=== PATIENT | female | born 1990 | race Caucasian/White ===

== ENCOUNTER 2016-07-23 03:50 | Emergency (ER) | payer SELFPAY ==
[2016-07-23 03:57] VITALS: BP 142/86
--- NOTE | 2016-10-12 23:56 | ED ---
Progress - Progress Note Progress Note: pt here for legal b;ood draw. no complaints blood drawn Dx Legal blood draw Course/Dx - Diagnoses Provider Diagnoses: Blood alcohol request
== END 2016-07-23 04:34 | disposition home or self-care (01) ==
LOC: ED 03:50
DX: Z04.8 Encounter for examination and observation for other specified reasons (principal)
CPT/HCPCS: 99283